=== PATIENT | male | born 1960 | race Caucasian/White ===

== ENCOUNTER 2016-09-09 10:52 | Day surgery (SDC) | payer OTHER ==
[2016-09-06 15:21] VITALS: Ht 182.9 cm; Wt 100.6 kg
[~2016-09-09] VITALS: Ht 182.9 cm; Wt 100.6 kg
[2016-09-09] VITALS (22 sets, daily range): BP systolic 99–133; BP diastolic 58–76; PULSE 54–68; RESP 12–22
[2016-09-09] MEDS ORDERED: SOD CHLORIDE 0.9% 1,000 ML IV SCH (11:00)
[2016-09-09] MEDS ORDERED: CEFAZOLIN 2 GM/50 ML (PMX) 50 ML IVPB ONE (11:00)
[2016-09-09] MEDS ORDERED: BUPIVACAINE 0.25% (MPF) 30 ML INJ ONE (13:36)
--- NOTE | 2016-09-09 13:53 | HPN ---
Date/Time of Note Date/Time of Note DATE: 09/09/16 TIME: 13:53 Interval H&P Admission Note Pt. seen H&P reviewed: No system changes DUNCAN TA MD Sep 09, 2016 13:53
[2016-09-09] MEDS ORDERED: FENTAnyl 50 MCG/ML VIAL ONE ×2 (14:17→17:15)
[2016-09-09] MEDS ORDERED: METOCLOPRAMIDE 10 MG INJ IV PRN (14:30)
[2016-09-09] MEDS ORDERED: FENTAnyl 50 MCG/ML VIAL IV PRN ×2 (14:30)
[2016-09-09] MEDS ORDERED: ALBUTEROL 0.083% (NEB) 2.5 MG/3 ML AMP HHN ONE (14:30)
[2016-09-09] MEDS ORDERED: HYDROmorphONE (0.2 MG/ML) 10ML SYG IV PRN ×3 (14:30)
[2016-09-09] MEDS ORDERED: ONDANSETRON 4 MG INJ IV PRN ×2 (14:30→17:30)
[2016-09-09] MEDS ORDERED: DIPHENHYDRAMINE 50 MG INJ IV PRN (14:30)
[2016-09-09] MEDS ORDERED: MEPERIDINE 25 MG INJ IV PRN (14:30)
[2016-09-09] MEDS ORDERED: OXYCODONE/ACETAMINOPHEN (5/325) TAB PO PRN ×3 (14:30→17:30)
[2016-09-09] MEDS ORDERED: ROPIVACAINE 0.5 % 30 ML VIAL ONE (14:38)
[2016-09-09] MEDS ORDERED: LIDOCAINE 2% (SDV) 5 ML INJ ONE (14:38)
[2016-09-09] MEDS ORDERED: CEFAZOLIN 1 GM INJ ONE (14:38)
[2016-09-09] MEDS ORDERED: PROPOFOL 40 ML ONE (14:38)
[2016-09-09] MEDS ORDERED: ROCURONIUM 50 MG INJ ONE (14:38)
[2016-09-09] MEDS ORDERED: SUCCINYLCHOLINE CHLORIDE 100 MG/5 ML SYG IV ONE (14:38)
[2016-09-09] MEDS ORDERED: POLYMYXIN/BACITRACIN 1L IRRIG IRR ONE (17:15)
[2016-09-09] MEDS ORDERED: SUGAMMADEX SODIUM 200 MG/2 ML VIAL IV ONE (17:18)
[2016-09-09] MEDS ORDERED: KETOROLAC 30 MG INJ IV PRN (17:30)
[2016-09-09] MEDS ORDERED: IBUPROFEN 600 MG TAB PO PRN (17:30)
--- NOTE | 2016-09-09 17:43 | OPR ---
Date/Time of Note Date/Time of Note DATE: 09/09/16 TIME: :27 Operative Report Procedure Date: Sep 09, 2016 Preoperative Diagnosis 1. Right inguinal hernia without obstruction or gangrene 2. Recurrent left inguinal hernia without obstruction or gangrene Postoperative Diagnosis 1. Right inguinal hernia without obstruction or gangrene 2. Recurrent left inguinal hernia without obstruction or gangrene Operation Performed 1. Repair of right inguinal hernia with mesh 2. Repair of recurrent left inguinal hernia with mesh 3. Bilateral ilioinguinal nerve blocks Surgeon: DUNCAN TA MD Anesthesia: general Anesthesiologist: VINCENT PENNY Estimated Blood Loss: minimal Specimens 1. Right cord lipoma 2. Left cord lipoma Grafts/Implants 1. Large Ethicon ultra pro plug and patch on right side 2. Small Ethicon ultra pro plug and patch on left side Complications: None Pt Condition Post Procedure: stable Disposition: PACU Indications The patient is a obese 56-year-old male with a history of a left inguinal hernia repair several years ago who presented to the office complaining of a painful bilateral groin bulges. [He] was diagnosed on clinical exam as having a bilateral inguinal hernia. This was confirmed via an ultrasound study. The patient was scheduled for open bilateral inguinal hernia repair with mesh and bilateral ilioinguinal nerve blocks to prevent sequelae of hernia disease which include, but are not limited to: Incarceration and strangulation. All risks and benefits of the procedure including but not limited to: Wound infection, excessive bleeding, postoperative seroma/hematoma formation, nerve injury which may be temporary versus permanent, injury to the reproductive organs including the vas deferens and the testicle which may lead to testicular atrophy and need for possible orchiectomy, hernia recurrence, chronic pain, etc. were all explained to the patient full detail. I extensively discussed the risk of possible interaction to testicular blood flow and need for orchiectomy with the patient in detail and I ensured that all of his questions were answered regarding this and that he fully understood this possibility. The patient fully understood and wished to proceed with the procedure. Informed consent was therefore obtained. Of note, the patient is a smoker. Prior to scheduling him for surgery I had asked that he quit smoking. According to the patient he has quit for 2 weeks. I stressed the importance of maintaining smoking cessation in order to prevent postoperative complications and hernia recurrence. He understands. Operative\Procedure Findings 1. Right large indirect and small direct inguinal hernia defects. 2. Small left recurrent indirect inguinal hernia following the initial primary repair. Extensive scar tissue. 3. Bilateral cord lipomas. Procedure Description The patient was brought to the operating room and placed supine on the operating table. Bilateral sequential compression devices were placed on both lower extremities. A dose of broad-spectrum perioperative intravenous antibiotics was given. After the induction of smooth general anesthesia the patient's abdomen and bilateral groins were prepped and draped in standard surgical fashion. Attention was first turned towards the right inguinal hernia. After performance of the surgical timeout 0.25% Marcaine was injected over the area of the incision. Incision was then made using a 15 blade scalpel from the right pubic tubercle towards the right anterior superior iliac spine. Incision was carried down through the skin into the subcutaneous tissues using Bovie electrocautery. Carl's fascia was incised and the aponeurosis of the external oblique muscle was reached. The aponeurosis of the external oblique muscle was then incised in the direction of its fibers using a 15 blade scalpel and further opened using Metzenbaum scissors. The ilioinguinal nerve was not visualized. Using blunt dissection the spermatic cord was then mobilized off of the floor of the inguinal canal and encircled using a Savi drain. There is a blowout of the floor of the inguinal canal. Cremasteric muscles were incised and dissection of the cord was begun. The cord structures were identified and preserved throughout the entirety of the procedure. A large indirect hernia sac was identified. It was dissected off of the cord. Dissection was continued towards the neck of the hernia. The sac was then reduced back into the intra-abdominal cavity. A moderate size cord lipoma was also identified, transected and tied with a 2-0 Vicryl tie passed off the field as specimen. A small direct inguinal hernia defect was identified containing preperitoneal fat. The fat was reduced through the direct defect. The direct defect was reapproximated using an interrupted 3-0 Vicryl sutures. The indirect hernia defect was then repaired using a large sized Ethicon ultra pro plug. The plug was sutured in place using interrupted 3-0 Vicryl sutures. An onlay mesh was then used to reconstruct the floor of the inguinal canal. It was secured in place using interrupted 2-0 PDS sutures. Both the plug and the mesh were soaked in antibiotic irrigation prior to placement in the field. A slit was made in the mesh to accommodate the spermatic cord. With the repair complete was examined and noted to be hemostatic in tension-free. The wound cavity was then irrigated with more antibiotic containing irrigation. Spermatic cord was then placed back into its anatomical position. The aponeurosis of the external oblique muscle was then reapproximated using a running 3-0 Vicryl suture. Incision was then closed in layers using a running 3 -0 Vicryl suture for the Carl's fascia. Attention was then turned towards the recurrent left inguinal hernia. 0.25% Marcaine was injected over the area of the incision. Incision was then made using a 15 blade scalpel from the left pubic tubercle towards the left anterior superior iliac spine. Incision was carried down through the skin into the subcutaneous tissues using Bovie electrocautery. Carl's fascia was replaced with scar tissue. It was incised. The external oblique muscle was also replaced by scar tissue which was thick and dense. Tedious and gentle dissection was done using a blunt Ngozi clamp and the Bovie electrocautery. The external oblique aponeurosis was scarred down to the spermatic cord. Eventually it was able to be dissected off and spermatic cord visualized. The ilioinguinal nerve was not visualized. Using blunt dissection the spermatic cord was then mobilized off of the floor of the inguinal canal and encircled using a Captain Cook drain. There was a blowout of the floor of the inguinal canal identified. Cremasteric muscles were incised and dissection of the cord was begun. The cord structures were identified and preserved throughout the entirety of the procedure. A small indirect hernia sac was identified. It was dissected off of the cord. Dissection was continued towards the neck of the hernia. The sac was then reduced back into the intra-abdominal cavity. A small sized cord lipoma was also identified, transected and tied with a 2-0 Vicryl tie passed off the field as specimen. The indirect hernia defect was then repaired using a small sized Ethicon ultra pro plug. The plug was sutured in place using interrupted 3-0 Vicryl sutures. An onlay mesh was then used to reconstruct the floor of the inguinal canal. It was secured in place using interrupted 2-0 PDS sutures. Both the plug and the mesh were soaked in antibiotic irrigation prior to placement in the field. A slit was made in the mesh to accommodate the spermatic cord. With the repair complete was examined and noted to be hemostatic in tension-free. The wound cavity was then irrigated with more antibiotic containing irrigation. Spermatic cord was then placed back into its anatomical position. The aponeurosis of the external oblique muscle was then reapproximated using a running 3-0 Vicryl suture. Incision was then closed in layers using a running 3-0 Vicryl suture for the Carl's fascia. The skin of both incisions were then reapproximated using skin sherita. Bilateral ilioinguinal nerve blocks were then performed using 10 cc of 0.25% Marcaine in a radial fashion approximately 2 fingerbreadths medial and inferior to the anterior superior iliac spines. Incisions were cleaned and sterile dressings were applied. The patient was awoken from anesthesia and transferred to the recovery room in stable condition. Both testicles were palpated and noted to be in their anatomical positions at the end of the case. All counts were correct at the end of the case 2. DUNCAN TA MD Sep 09, 2016 17:43
[2016-09-09] MEDS ORDERED: morphine 4 MG/ML VIAL IV PRN (18:00)
== END 2016-09-09 19:56 | disposition home or self-care (01) ==
LOC: SDS 10:52
PROVIDERS: ATTEND Surgery
DX: K40.91 Unilateral inguinal hernia, without obstruction or gangrene, recurrent (principal); I10 Essential (primary) hypertension; E66.9 Obesity, unspecified; Z68.30 Body mass index [BMI] 30.0-30.9, adult
CPT/HCPCS: 49505; 49520; 88305; 94664; C1781; J0690; J1170; J2765; J3010; J7999; Z7512; Z7610; J2795

== ENCOUNTER 2018-04-08 12:35 | Inpatient (IN) | payer OTHER ==
[~2018-04-08] VITALS: Ht 182.9 cm; Wt 113.2 kg
[2018-04-08] MEDS ORDERED: HYDROmorphONE 1 MG/ML SYG IV STA (13:56)
[2018-04-08] MEDS ORDERED: SOD CHLORIDE 0.9% 1,000 ML IV STA (13:56)
[2018-04-08] MEDS ORDERED: ATOR40TA68 PO (14:54)
[2018-04-08] MEDS ORDERED: FURO40SO4 PO (14:54)
[2018-04-08] MEDS ORDERED: HYDROmorphONE 2 MG/ML SYG IV STA (15:11)
[2018-04-08] MEDS ORDERED: morphine 10 MG INJ IV ONE ×2 (16:00→17:00)
[2018-04-08] MEDS ORDERED: ONDANSETRON 4 MG INJ IV STA ×2 (16:51→16:52)
[2018-04-08] MEDS ORDERED: PIPER-TAZO 3.375 GM IV (PMX) 100 ML IVPB ONE (17:00)
[2018-04-08] MEDS ORDERED: KETAMINE (50 MG/ML) 10 ML VIAL IV ONE (17:00)
[2018-04-08] MEDS ORDERED: ACETAMINOPHEN 325 MG TAB PO PRN ×2 (17:30→18:30)
[2018-04-08] MEDS ORDERED: ONDANSETRON 4 MG INJ IV PRN ×2 (17:30→18:30)
[2018-04-08] MEDS ORDERED: DOCUSATE SODIUM 100 MG CAP PO PRN (18:30)
[2018-04-08] MEDS ORDERED: ZOLPIDEM 5 MG TAB PO PRN (18:30)
[2018-04-08] MEDS ORDERED: NACL 0.9% 3 ML SYG IV SCH (18:30)
[2018-04-08] MEDS ORDERED: HYDROCODONE/APAP (5/325) TAB PO PRN (18:30)
[2018-04-08] MEDS ORDERED: morphine 2 MG INJ IV PRN (18:30)
[2018-04-08 18:40] VITALS: BP 127/73; PULSE 65; RESP 16
--- NOTE | 2018-04-08 19:04 | HP ---
Date/Time of Note Date/Time of Note DATE: 04/08/18 TIME: 19:02 Assessment/Plan VTE Prophylaxis SCD applied (from Nsg): Yes Pharmacological prophylaxis: NA/contraindicated Pharm contraindication: surgical contra Lines/Catheters IV Catheter Type (from Nrsg): Saline Lock Assessment/Plan Hospital Course 1. Sepsis secondary to acute cholecystitis Surgery consultation with Dr. Alaniz obtained in the ER Zosyn IV Pain control 2. Dyslipidemia Hold home statin 3. Morbid obesity Lifestyle changes Prophylaxis: SCDs Result Diagram: 04/08/18 1419 04/08/18 1419 Results 24hrs Laboratory Tests Test 04/08/18 14:19 White Blood Count 12.1 H Red Blood Count 5.59 Hemoglobin 16.2 Hematocrit 49.6 Mean Corpuscular Volume 88.7 Mean Corpuscular Hemoglobin 29.0 Mean Corpuscular Hemoglobin Concent 32.7 Red Cell Distribution Width 13.1 Platelet Count 221 Mean Platelet Volume 10.4 Immature Granulocytes % 0.400 Neutrophils % 71.1 Lymphocytes % 21.2 Monocytes % 6.2 Eosinophils % 0.7 Basophils % 0.4 Nucleated Red Blood Cells % 0.0 Immature Granulocytes # 0.050 H Neutrophils # 8.6 H Lymphocytes # 2.6 Monocytes # 0.8 Eosinophils # 0.1 Basophils # 0.1 Nucleated Red Blood Cells # 0.0 Sodium Level 142 Potassium Level 4.6 Chloride Level 106 Carbon Dioxide Level 23 Anion Gap 13 Blood Urea Nitrogen 19 Creatinine 0.89 Est Glomerular Filtrat Rate mL/min > 60 Glucose Level 107 Calcium Level 9.7 Total Bilirubin 0.3 Direct Bilirubin 0.00 Indirect Bilirubin 0.3 Aspartate Amino Transf (AST/SGOT) 25 Alanine Aminotransferase (ALT/SGPT) 19 Alkaline Phosphatase 73 Troponin I < 0.012 Total Protein 8.0 Albumin 4.4 Globulin 3.60 H Albumin/Globulin Ratio 1.22 Lipase 74 HPI/ROS Admit Date/Time Admit Date/Time Apr 08, 2018 at 17:22 Hx of Present Illness Patient is a 57-year-old male with history of obesity, dyslipidemia. Patient presents with several days of midepigastric pain with radiation to the back, patient denies any nausea or vomiting or changes in bowel movements. Patient reports similar symptoms 15 years ago that resolved spontaneously. In the ER done ultrasound and CT abdomen showed cholelithiasis with cholecystitis, lipase and LFTs were normal. Patient has no other complaints this time. ROS Constitutional: no complaints, improved Eyes: no complaints ENT: no complaints Respiratory: no complaints Cardiovascular: no complaints Gastrointestinal: pain Genitourinary: no complaints Musculoskeletal: no complaints Skin: no complaints Neurologic: no complaints Endocrine: no complaints Lymphatic: no complaints Psychological: no complaints, nl mood/affect Immunologic: no complaints PMH/Family/Social Past Medical History Dyslipidemia, obesity Medications Current Medications Potassium Chloride/Sodium Chloride 1,000 ml @ 70 mls/hr [id number] IV ; Start 04/08/18 at 18:05 IV Flush (NS 3 ml) 3 ml PER PROTOCOL IV ; Start 04/08/18 at 18:30 Ondansetron HCl (Zofran Inj) 4 mg Q6H PRN IV NAUSEA/VOMITING; Start 04/08/18 at 18:30 Acetaminophen (Tylenol Tab) 650 mg Q6H PRN PO .PAIN 1-3 OR TEMP; Start 04/08/18 at 18:30 Acetaminophen/ Hydrocodone Bitart ([place] (5/325)) 1 tab Q6H PRN PO .MOD PAIN 4- 6; Start 04/08/18 at 18:30 Morphine Sulfate (morphine) 2 mg Q4H PRN IV .SEVERE PAIN 7-10; Start 04/08/18 at 18:30 Docusate Sodium (Colace) 100 mg Q12H PRN PO .CONSTIPATION; Start 04/08/18 at 18:30 Zolpidem Tartrate (Ambien) 5 mg QHS PRN PO .INSOMNIA; Start 04/08/18 at 18:30 Piperacillin Sod/ Tazobactam Sod 100 ml @ 200 mls/hr Q8 IVPB ; Start 04/08/18 at 22:00 Coded Allergies: No Known Drug Allergies (Unverified Allergy, Unknown, 09/09/16) Family History Significant Family History: no pertinent family hx Social History Alcohol Use: rarely Smoking Status: Current every day smoker Drug Use: none Exam/Review of Systems Vital Signs Vitals Vital Signs Date Temp Pulse Resp B/P (MAP) Pulse Ox O2 O2 Flow FiO2 Time Delivery Rate 04/08/18 57 18 91/76 (81) 94 Room Air 17:20 04/08/18 97.4 12:54 Exam Constitutional: alert, oriented Respiratory: clear to auscultation Cardiovascular: regular rate and rhythm Gastrointestinal: soft, tender; No distended Musculoskeletal: nl extremities to inspection CARLOS EDUARDO FLORES Apr 08, 2018 19:04
[2018-04-08] MEDS: NS + KCL 20 MEQ 1,000 ML IV SCH (20:12)
[2018-04-08 20:26] VITALS: Ht 182.9 cm; Wt 113.2 kg
[2018-04-08 20:28] VITALS: BP 128/75; PULSE 62; RESP 18
[2018-04-08] MEDS ORDERED: METOCLOPRAMIDE 10 MG INJ IV PRN (21:00)
[2018-04-08] MEDS: PIPER-TAZO 3.375 GM IV (PMX) 100 ML IVPB SCH (22:35)
--- NOTE | 2018-04-08 22:47 | ERD ---
ER Documentation Chief Complaint Chief Complaint AP X 6 HRS AGO HPI 57 year old male presenting with abdominal pain that started earlier this morning. Upon evaluation, patient was very angry and verbally abusive, yelling profanities at me and refusing to answer questions until I gave him pain medications. Later when I spoke with the patient, he states his pain is mostly in the upper abdomen, radiating all over and to his back, described as burning with associated nausea and one episode of nausea and NBNB vomiting. No fevers, chills, melena, hematochezia, constipation. Pain is constant. No alleviating or exacerbating factors. ROS All systems reviewed and are negative except as per history of present illness. Medications Home Meds Active Scripts Metronidazole* (Flagyl*) 500 Mg Tablet, 500 MG PO TID for 5 Days, #15 TAB Prov:CARLOS EDUARDO NICHOLAS 04/09/18 Ciprofloxacin Hcl* (Ciprofloxacin Hcl*) 500 Mg Tablet, 500 MG PO BID for 5 Days, #10 TAB Prov:CARLOS EDUARDO NICHOLAS 04/09/18 Reported Medications Furosemide* (Lasix* Liq) 40 Mg/4 Ml Solution, 40 MG PO DAILY, #120 ML 04/08/18 Atorvastatin* (Atorvastatin*) 40 Mg Tablet, 40 MG PO QHS, #30 TAB 04/08/18 Allergies Allergies: Coded Allergies: No Known Drug Allergies (Unverified Allergy, Unknown, 09/09/16) PMhx/Soc History of Surgery: Yes (inguinal hernia repair ) Anesthesia Reaction: No Hx Neurological Disorder: No Hx Respiratory Disorders: No Hx Cardiac Disorders: Yes (HTN,HLD) Hx Psychiatric Problems: No Hx Miscellaneous Medical Probl: No Hx Alcohol Use: Yes (OCCASIONAL ) Hx Substance Use: No Hx Tobacco Use: Yes Smoking Status: Current every day smoker FmHx Family History: No diabetes Physical Exam Vitals Vital Signs Date Temp Pulse Resp B/P (MAP) Pulse Ox O2 O2 Flow FiO2 Time Delivery Rate 04/08/18 57 18 91/76 (81) 94 Room Air 17:20 04/08/18 60 18 121/63 100 Room Air 16:17 (82) 04/08/18 97.4 63 25 144/79 100 12:54 (100) Physical Exam Const: No acute distress Head: Atraumatic Eyes: Normal Conjunctiva ENT: Normal External Ears, Nose and Mouth. Neck: Full range of motion. No meningismus. Resp: Clear to auscultation bilaterally Cardio: Regular rate and rhythm, no murmurs Abd: Soft, non tender, non distended. Normal bowel sounds Skin: No petechiae or rashes Back: No midline or flank tenderness Ext: No cyanosis, or edema Neur: Awake and alert Psych: Normal Mood and Affect Result Diagram: 04/09/18 0545 04/09/18 0545 Results 24 hrs Laboratory Tests Test 04/08/18 14:19 White Blood Count 12.1 10^3/ul Red Blood Count 5.59 10^6/ul Hemoglobin 16.2 g/dl Hematocrit 49.6 % Mean Corpuscular Volume 88.7 fl Mean Corpuscular Hemoglobin 29.0 pg Mean Corpuscular Hemoglobin Concent 32.7 g/dl Red Cell Distribution Width 13.1 % Platelet Count 221 10^3/UL Mean Platelet Volume 10.4 fl Immature Granulocytes % 0.400 % Neutrophils % 71.1 % Lymphocytes % 21.2 % Monocytes % 6.2 % Eosinophils % 0.7 % Basophils % 0.4 % Nucleated Red Blood Cells % 0.0 /100WBC Immature Granulocytes # 0.050 10^3/ul Neutrophils # 8.6 10^3/ul Lymphocytes # 2.6 10^3/ul Monocytes # 0.8 10^3/ul Eosinophils # 0.1 10^3/ul Basophils # 0.1 10^3/ul Nucleated Red Blood Cells # 0.0 10^3/ul Sodium Level 142 mmol/L Potassium Level 4.6 mmol/L Chloride Level 106 mmol/L Carbon Dioxide Level 23 mmol/L Anion Gap 13 Blood Urea Nitrogen 19 mg/dl Creatinine 0.89 mg/dl Est Glomerular Filtrat Rate mL/min > 60 mL/min Glucose Level 107 mg/dl Calcium Level 9.7 mg/dl Total Bilirubin 0.3 mg/dl Direct Bilirubin 0.00 mg/dl Indirect Bilirubin 0.3 mg/dl Aspartate Amino Transf (AST/SGOT) 25 IU/L Alanine Aminotransferase (ALT/SGPT) 19 IU/L Alkaline Phosphatase 73 IU/L Troponin I < 0.012 ng/ml Total Protein 8.0 g/dl Albumin 4.4 g/dl Globulin 3.60 g/dl Albumin/Globulin Ratio 1.22 Lipase 74 U/L Current Medications Medications Dose Sig/Mitchel Start Time Status Last (Trade) Ordered Route PRN Stop Time Admin Dose Reason Admin Sodium 1,000 ml @ Q1H STAT 04/08/18 DC 04/08/18 Chloride 1,000 mls/hr IV 13:56 14:14 04/08/18 14:55 0.5 mg ONCE STAT 04/08/18 DC 04/08/18 Hydromorphone IV 13:56 14:12 HCl 04/08/18 13:58 (Dilaudid) 1 mg ONCE STAT 04/08/18 DC 04/08/18 Hydromorphone IV 15:11 15:18 HCl 04/08/18 15:13 (Dilaudid) Morphine 6 mg ONCE ONCE 04/08/18 DC 04/08/18 Sulfate IV 16:00 15:53 (morphine) 04/08/18 16:01 Morphine 8 mg ONCE ONCE 04/08/18 DC 04/08/18 Sulfate IV 17:00 16:56 (morphine) 04/08/18 17:01 Piperacillin 100 ml @ ONCE ONCE 04/08/18 DC 04/08/18 Sod/ 200 mls/hr IVPB 17:00 16:55 Tazobactam 04/08/18 17:29 Sod Ondansetron 4 mg ONCE STAT 04/08/18 DC HCl (Zofran IV 16:51 Inj) 04/08/18 17:02 Ondansetron 4 mg ONCE STAT 04/08/18 DC 04/08/18 HCl (Zofran IV 16:52 16:55 Inj) 04/08/18 16:53 Ketamine 30 mg ONCE ONCE 04/08/18 DC HCl IV 17:00 (Ketalar) 04/08/18 17:01 Procedures/MDM Labs reviewed: CBC shows mild leukocytosis CMP shows no evidence of electrolyte abnormality, acidosis, renal failure, liver disease, biliary obstruction Lipase within normal limits, no evidence of pancreatitis Trop wnl, no myocardial ischemia EKG: NSR Normal intervals, normal axis No acute ischemic changes Imaging results reviewed: CT Abdomen and Pelvis show evidence of acute cholecystitis with other nonacute findings noted in report US Gallbladder show signs of acute cholecystitis. [facility] Patient is presenting with abdominal pain for 1 day with stable vitals. He was initially very verbally abusive to me as was his . Patient stated he would not talk to me until his pain was better. Labs were ordered and only notable for leukocytosis. Exam showed significant abdominal tenderness so CT was ordered. In the meantime, patient required multiple doses of high dose narcotics for pain control. CT abdomen showed evidence of acute cholecystitis without other acute abnormalities. I have a low suspicion for aortic dissection or bowel ischemia. US Abdomen was ordered, con firming diagnosis of acute cholecystis. Results were discussed with the patient Consulted with surgeon, Dr. Alaniz regarding patient. Antibiotics were started and patient was kept NPO. Patient will be admitted to Med Surg by Dr. Nicholas. Departure Diagnosis: Primary Impression: Cholecystitis Additional Impression: Abdominal pain Abdominal location: upper abdomen, unspecified Qualified Codes: R10.10 - Upper abdominal pain, unspecified Condition: Serious AMY BOUDREAUX MD Apr 08, 2018 22:46
--- NOTE | 2018-04-09 00:25 | CONS ---
Assessment/Plan Assessment/Plan Hospital Course (Demo Recall) Patient with severe epigastric pain consistent with acute cholecystitis with mildly elevated white blood cell count. Patient however feels that this is more likely to be gastritis versus ulcer which she has experienced 15 years ago. I explained my recommendation that the patient should undergo laparoscopic cholecystectomy and that there is no medication specifically that can successfully treat this. The patient states that he is hungry and he is sure that this is only gastritis. I explained to the patient that if this cholecystitis is not taking care of surgically then there is a chance that he may evolve to, pancreatitis, obstructive jaundice. The patient will be monitored. Consultation Date/Type/Reason Admit Date/Time Apr 08, 2018 at 17:22 Date of Consultation: Apr 08, 2018 Type of Consult Surgical consult Reason for Consultation Abdominal pain suspected cholecystitis Requesting Provider: CARLOS EDUARDO FLORES Date/Time of Note DATE: 04/09/18 TIME: 00:24 Hx of Present Illness Patient presented to the emergency room with abdominal pain of a few days duration. Pain was quite severe when he reached the emergency room complaining of pain in the epigastrium with some nausea and vomiting over the prior several hours. Patient states that he had a very similar episode 15 years ago and at that time he recalls that this was gastritis or an ulcer. He thinks this is the same thing at this time. He denies any other symptoms except for the aforementioned one 15 years ago. He does have some issues with hypertension and takes benazepril intermittently and Lasix intermittently. Somewhat of a language barrier is not excellent speaks [place] patient was noted to have thickened gallbladder on CT consistent with cholecystitis with multiple gallstones and a white blood cell count of 12,000 Past Medical History Home Meds Reported Medications Furosemide* (Lasix* Liq) 40 Mg/4 Ml Solution, 40 MG PO DAILY, #120 ML 04/08/18 Atorvastatin* (Atorvastatin*) 40 Mg Tablet, 40 MG PO QHS, #30 TAB 04/08/18 Medications Current Medications Potassium Chloride/Sodium Chloride 1,000 ml @ 70 mls/hr [id number] IV Last administered on 04/08/18at 20:12; Admin Dose 70 MLS/HR; Start 04/08/18 at 18:05 IV Flush (NS 3 ml) 3 ml PER PROTOCOL IV ; Start 04/08/18 at 18:30 Ondansetron HCl (Zofran Inj) 4 mg Q6H PRN IV NAUSEA/VOMITING; Start 04/08/18 at 18:30 Acetaminophen (Tylenol Tab) 650 mg Q6H PRN PO .PAIN 1-3 OR TEMP; Start 04/08/18 at 18:30 Acetaminophen/ Hydrocodone Bitart ([place] (5/325)) 1 tab Q6H PRN PO .MOD PAIN 4- 6; Start 04/08/18 at 18:30 Morphine Sulfate (morphine) 2 mg Q4H PRN IV .SEVERE PAIN 7-10; Start 04/08/18 at 18:30 Docusate Sodium (Colace) 100 mg Q12H PRN PO .CONSTIPATION; Start 04/08/18 at 18:30 Zolpidem Tartrate (Ambien) 5 mg QHS PRN PO .INSOMNIA; Start 04/08/18 at 18:30 Piperacillin Sod/ Tazobactam Sod 100 ml @ 200 mls/hr Q8 IVPB Last administered on 04/08/18at 22:35; Admin Dose 200 MLS/HR; Start 04/08/18 at 22:00 Metoclopramide HCl (Reglan) 10 mg ONCE PRN IV nause/vomiting Last administered on 04/08/18at 21:09; Admin Dose 10 MG; Start 04/08/18 at 21:00; Stop 04/09/18 at 20:59 Allergies: Coded Allergies: No Known Drug Allergies (Unverified Allergy, Unknown, 09/09/16) Past Surgical History Past Surgical Hx: other (Bilateral inguinal hernia via open approach) Social History Alcohol Use: rarely Smoking Status: Current every day smoker Drug Use: none Exam/Review of Systems Exam Vitals Vital Signs Date Temp Pulse Resp B/P (MAP) Pulse Ox O2 O2 Flow FiO2 Time Delivery Rate 04/08/18 98.2 62 18 128/75 98 Room Air 20:28 (92) Gastrointestinal: tender (Right upper quadrant and epigastrium) Results Result Diagram: 04/08/18 1419 04/08/18 1419 Results 24hrs Laboratory Tests Test 04/08/18 14:19 White Blood Count 12.1 H Red Blood Count 5.59 Hemoglobin 16.2 Hematocrit 49.6 Mean Corpuscular Volume 88.7 Mean Corpuscular Hemoglobin 29.0 Mean Corpuscular Hemoglobin Concent 32.7 Red Cell Distribution Width 13.1 Platelet Count 221 Mean Platelet Volume 10.4 Immature Granulocytes % 0.400 Neutrophils % 71.1 Lymphocytes % 21.2 Monocytes % 6.2 Eosinophils % 0.7 Basophils % 0.4 Nucleated Red Blood Cells % 0.0 Immature Granulocytes # 0.050 H Neutrophils # 8.6 H Lymphocytes # 2.6 Monocytes # 0.8 Eosinophils # 0.1 Basophils # 0.1 Nucleated Red Blood Cells # 0.0 Sodium Level 142 Potassium Level 4.6 Chloride Level 106 Carbon Dioxide Level 23 Anion Gap 13 Blood Urea Nitrogen 19 Creatinine 0.89 Est Glomerular Filtrat Rate mL/min > 60 Glucose Level 107 Calcium Level 9.7 Total Bilirubin 0.3 Direct Bilirubin 0.00 Indirect Bilirubin 0.3 Aspartate Amino Transf (AST/SGOT) 25 Alanine Aminotransferase (ALT/SGPT) 19 Alkaline Phosphatase 73 Troponin I < 0.012 Total Protein 8.0 Albumin 4.4 Globulin 3.60 H Albumin/Globulin Ratio 1.22 Lipase 74 Medications Medication Current Medications Potassium Chloride/Sodium Chloride 1,000 ml @ 70 mls/hr [id number] IV Last administered on 04/08/18at 20:12; Admin Dose 70 MLS/HR; Start 04/08/18 at 18:05 IV Flush (NS 3 ml) 3 ml PER PROTOCOL IV ; Start 04/08/18 at 18:30 Ondansetron HCl (Zofran Inj) 4 mg Q6H PRN IV NAUSEA/VOMITING; Start 04/08/18 at 18:30 Acetaminophen (Tylenol Tab) 650 mg Q6H PRN PO .PAIN 1-3 OR TEMP; Start 04/08/18 at 18:30 Acetaminophen/ Hydrocodone Bitart ([place] (5/325)) 1 tab Q6H PRN PO .MOD PAIN 4- 6; Start 04/08/18 at 18:30 Morphine Sulfate (morphine) 2 mg Q4H PRN IV .SEVERE PAIN 7-10; Start 04/08/18 at 18:30 Docusate Sodium (Colace) 100 mg Q12H PRN PO .CONSTIPATION; Start 04/08/18 at 18:30 Zolpidem Tartrate (Ambien) 5 mg QHS PRN PO .INSOMNIA; Start 04/08/18 at 18:30 Piperacillin Sod/ Tazobactam Sod 100 ml @ 200 mls/hr Q8 IVPB Last administered on 04/08/18at 22:35; Admin Dose 200 MLS/HR; Start 04/08/18 at 22:00 Metoclopramide HCl (Reglan) 10 mg ONCE PRN IV nause/vomiting Last administered on 04/08/18at 21:09; Admin Dose 10 MG; Start 04/08/18 at 21:00; Stop 04/09/18 at 20:59 VALERY KAHN MD Apr 09, 2018 00:25
[2018-04-09] MEDS: PIPER-TAZO 3.375 GM IV (PMX) 100 ML IVPB SCH ×2 (06:13→13:01)
[2018-04-09] MEDS: NS + KCL 20 MEQ 1,000 ML IV SCH (07:52)
[2018-04-09 08:31] VITALS: BP 105/63; RESP 18
[2018-04-09] MEDS ORDERED: METR500T PO (11:50)
[2018-04-09] MEDS ORDERED: CIPR500T4 PO (11:50)
--- NOTE | 2018-04-09 11:52 | PDOCDIS ---
Discharge Instructions CONDITION [id number] Patient Condition: [id number] Good HOME CARE INSTRUCTIONS: [id number] Diet Instructions: [id number] Reduced Calorie ACTIVITY: [id number] Activity Restrictions: [id number] No Restrictions FOLLOW UP/APPOINTMENTS Follow-up Plan FOLLOW UP WITH YOUR PCP IN 1-2 WEEKS, RETURN TO THE ER OF YOUR SYMPTOMS WORSEN OR DO NOT RESOLVE CARLOS EDUARDO FLORES Apr 09, 2018 11:52
--- NOTE | 2018-04-09 16:10 | DS ---
Date/Time of Note Date/Time of Note DATE: 04/09/18 TIME: 16:07 Discharge Summary Admission/Discharge Info Admit Date/Time Apr 08, 2018 at 17:22 Discharge Date/Time Apr 09, 2018 at 13:50 Discharge Diagnosis 1. Sepsis secondary to acute cholecystitis-result Surgery consultation with Dr. Corbin baker, patient is refusing surgery at this time, understands risks Status post Zosyn IV DC with Flagyl and Cipro Pain has resolved 2. Dyslipidemia Continue home statin 3. Morbid obesity Lifestyle changes Patient Condition: Good Hospital Course Patient is a 57-year-old male with history of obesity, dyslipidemia. Patient presents with several days of midepigastric pain with radiation to the back, patient denies any nausea or vomiting or changes in bowel movements. Patient reports similar symptoms 15 years ago that resolved spontaneously. In the ER done ultrasound and CT abdomen showed cholelithiasis with cholecystitis, lipase and LFTs were normal. Patient was seen by surgery and patient refused to have surgery, patient was explained the risks of not having surgery done but continued to refuse surgery. Patient did receive Zosyn IV and leukocytosis did resolve as did abdominal pain. Since patient refused surgery he was discharged with p.o. antibiotics and told to come back to the ER if his pain does not improve or worsens. Patient's son was in the room when risks of not having a cholecystectomy were explained. Patient's vitals, labs and physical exam are stable on the day of discharge. Home Meds Active Scripts Metronidazole* (Flagyl*) 500 Mg Tablet, 500 MG PO TID for 5 Days, #15 TAB Prov:CARLOS EDUARDO FLORES 04/09/18 Ciprofloxacin Hcl* (Ciprofloxacin Hcl*) 500 Mg Tablet, 500 MG PO BID for 5 Days, #10 TAB Prov:CARLOS EDUARDO FLORES 04/09/18 Reported Medications Furosemide* (Lasix* Liq) 40 Mg/4 Ml Solution, 40 MG PO DAILY, #120 ML 04/08/18 Atorvastatin* (Atorvastatin*) 40 Mg Tablet, 40 MG PO QHS, #30 TAB 04/08/18 Follow-up Plan FOLLOW UP WITH YOUR PCP IN 1-2 WEEKS, RETURN TO THE ER OF YOUR SYMPTOMS WORSEN OR DO NOT RESOLVE Primary Care Provider Not On Staff Doctor Time spent on discharge: > 30 minutes CARLOS EDUARDO FLORES Apr 09, 2018 16:10
== END 2018-04-09 13:50 | disposition home or self-care (01) | DRG 872 ==
LOC: E/R 12:35 → PP2 17:22
PROVIDERS: ADMIT Internal Medicine; ATTEND Internal Medicine
DX: A41.9 Sepsis, unspecified organism (principal); K80.00 Calculus of gallbladder with acute cholecystitis without obstruction; E78.5 Hyperlipidemia, unspecified; E66.01 Morbid (severe) obesity due to excess calories; Z68.33 Body mass index [BMI] 33.0-33.9, adult; F17.200 Nicotine dependence, unspecified, uncomplicated
CPT/HCPCS: 74176; 76705; 80048; 80053; 83036; 83690; 83735; 84100; 84484; 85025; 93005; 96374; 96375; 96376; J1170; J2270; J2405; J2543; J2765; J3480; J7030